=== PATIENT | female | born 1960 | race Caucasian/White ===

== ENCOUNTER 2018-10-15 07:45 | Day surgery (SDC) | payer OTHER ==
[2018-10-14 10:19] LABS: HEMATOCRIT 44.3 % (36.0-48.0); HEMOGLOBIN 14.9 g/dL (12-16); MCH 28.5 pg (26.0-34.0); MCHC 33.6 g/dL (31.0-37.0); MCV 84.9 fL (80.0-100.0); MEAN PLATELET VOLUME 8.9 fL (7.4-10.4); RBC 5.22 10x6/uL (4.00-5.40); RDW 13.7 % (11.5-14.5); WBC 5.4 10x3/uL (4.8-10.8)
[2018-10-14 10:35] LABS: ANION GAP 11.1 mmol/L (8-16); CALCIUM 9.8 mg/dL (8.5-10.1); CARBON DIOXIDE 29.6 mmol/L (21.0-32.0); POTASSIUM - SERUM 4.7 mmol/L (3.5-5.1)
[~2018-10-15] VITALS: Ht 320 cm; Wt 122.5 kg
[2018-10-15 07:35] VITALS: Ht 320 cm; Wt 122.5 kg
[2018-10-15 07:40] LABS: HCG URINE NEGATIVE (NEGATIVE)
[~2018-10-15 07:45] MED LIST: BISOPROLOL-HCTZ1 TA5 PO; CLARITIN 10 MG10 MG PO; FLUTICASONE PRO16 GM NASAL; GLUCOPHAGE1000 MG PO; LEXAPRO10 MG PO; LIPITOR40 MG PO; SYNTHROID125 MCG PO
[2018-10-15] MEDS ORDERED: HYDROCODON-ACE1 EAC7 PO (11:40)
[2018-10-15] MEDS ORDERED: DURICEF500 MG PO (11:40)
--- NOTE | 2018-10-15 12:49 | NUR ---
1215 PT ASKING FOR PAIN MEDICATION. C/O LEFT ELBOW PAIN AND ALSO HANDY.
--- NOTE | 2018-10-15 13:15 | OP ---
PATIENT NAME: JENNA QUINTERO MEDICAL RECORD: [id number] :64 LOCATION:D.OPS ADMISSION DATE: SURGEON: PAPI ESCUDERO DO DATE OF OPERATION: 10/15/2018 PROCEDURE PERFORMED: Removal of cyst of the left elbow. PREOPERATIVE DIAGNOSIS: Cyst, left elbow. POSTOPERATIVE DIAGNOSIS: Cyst, left elbow. INDICATIONS: Ms. Quintero is a 57-year-old female who has had a cyst on her left elbow for quite some time. It was getting bigger and very painful when she goes to rest her arm on anything it appeared to transilluminate in the office, so I thought it was a ganglion initially, even though an odd spot for it. I told the risks would be recurrence, infection, bleeding, damage to nerves and vessels and need for further surgery. She is okay with that and signed the consent. SURGEON: Papi Escudero DO DESCRIPTION OF PROCEDURE: The patient was taken to operative suite, laid in supine position. Left upper extremity was prepped and draped in sterile fashion. The patient was given Ancef preoperatively. The timeout was performed and everyone was in agreement with the correct side, site, patient and procedure. Once the patient had been prepped and draped, incision was marked out over the cyst on the posterior side of the elbow. The left upper extremity was then exsanguinated with an Esmarch. Tourniquet was inflated to 250 mmHg, it was up for 8 minutes. Incision then began with a 15-blade scalpel down to the cyst. A small piece was ruptured and white material came out of it, almost toffee-like from gout. The cyst was then removed and there were no tracking stalks anywhere, it was just there under the skin. This was sent for culture identification and then the tourniquet was let down. The site was injected with 0.25% Marcaine with epinephrine, approximately 6 mL of that and then the site was closed with 3-0 Vicryl in an inverted interrupted fashion and 3-0 nylon in a horizontal mattress fashion, dressed with Adaptic, 4 x 4s, Webril and then Frederick wrap. She was awakened and taken to recovery in stable condition. BLOOD LOSS: Minimal. COMPLICATIONS: None. TRANSINT:[id number] Voice Confirmation ID: [id number] DOCUMENT ID: [id number] PAPI ESCUDERO DO at 1315 CC: [id number] DICTATION DATE: 10/15/18 1137 ANESTHESIA ASSISTANT: 10/15/18 1240 [facility] [address] [id number]
--- NOTE | 2018-10-15 13:20 | NUR ---
1300 IV DC'D. NO BLEEDING AT SITE. BANDAID APPLIED.
== END 2018-10-15 13:22 | disposition home or self-care (01) ==
LOC: D.OPS 07:45 → D.PAN 08:30 → D.OPS 08:30 → D.PAN 09:00 → D.OPS 09:00
PROVIDERS: Anesthesiology; ATTEND Orthopaedic Surgery
DX: M25.822 Other specified joint disorders, left elbow (principal); Z01.812 Encounter for preprocedural laboratory examination